=== PATIENT | female | born 1985 | race African-American/Black ===

== ENCOUNTER 2017-12-21 10:15 | Emergency (ER) | payer OTHER ==
[~2017-12-21] VITALS: Ht 154.9 cm; Wt 65.8 kg
--- NOTE | ~2017-12-21 | EKG ---
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
[~2017-12-21 10:15] MED LIST: AZITHROMYCIN 2250 MG PO; DIFLUCAN150 MG PO; FLAGYL500 MG PO; HYDROCHLOROTH12.5 M2 PO; IBUPROFEN 400400 M1; IRON325; LABETALOL HCL100 MG PO; NOHOMEMEDICATIONS; NORCO 5-325 TA1 EACH PO; PERCOCET 10-321 EACH PO; PERCOCET 5-3251 EACH PO; PHENERGAN 25 MG25 M1; PREDNISONE 10 M10 M1 PO; PRENATAL; PROAIR HFA8.5 GM INH; PYRIDIUM200 MG PO; TUCKS MEDICATE1 EAC1; VERAPAMIL ER180 M1 PO; VISTARIL 25 MG25 M1 PO
[2017-12-21 11:05] LABS: URINE BILIRUBIN NEGATIVE (Negative); URINE BLOOD NEGATIVE (Negative); URINE CLARITY CLEAR; URINE COLOR YELLOW; URINE GLUCOSE-RANDOM* NEGATIVE (Negative); URINE KETONES NEGATIVE (Negative); URINE LEUKOCYTES-REFLEX NEGATIVE (Negative); URINE NITRITE-REFLEX NEGATIVE (Negative); URINE PROTEIN (DIPSTICK) NEGATIVE (Negative); URINE SPECIFIC GRAVITY 1.025 (1.005-1.035); URINE UROBILINOGEN 0.2 E.U./dl (0.2-1.0)
[2017-12-21 11:36] LABS: ABSOLUTE NEUTROPHILS 4.1 thou/uL (1.4-8.2); BASOPHILS 0.8 % (0.0-2.0); EOSINOPHILS 0.9 % (0.0-3.0); HEMATOCRIT 38.2 % (37.0-47.0); LYMPHOCYTES 36.5 % (24.0-44.0); MCH 30.2 pg (26.0-34.0); MCV 88.9 fL (80.0-100.0); MONOCYTES 8.8 % (1.0-8.0); PLATELET COUNT 317 thou/uL (150-400); RBC 4.29 mil/uL (4.20-5.00); RDW 12.7 % (10.5-14.5); WBC 8.6 thou/uL (4.0-11.0)
[2017-12-21 11:47] LABS: CALCIUM 9.4 mg/dL (8.5-10.1); CREATININE 0.8 mg/dL (0.6-1.0); POTASSIUM 3.9 mmol/L (3.5-5.1)
[2017-12-21 11:51] LABS: ALBUMIN 3.6 g/dL (3.4-5.0); TOTAL BILIRUBIN 0.3 mg/dL (<0.1-1.0); TOTAL PROTEIN 7.2 g/dL (6.4-8.2)
[2017-12-21] MEDS ORDERED: HYDROCODONE-AP1 EAC6 PO (13:17)
[2018-06-23] MEDS ORDERED: ALDOMET250 MG PO (15:01)
[2018-06-23] MEDS ORDERED: METHYLDOPA500 MG PO (16:32)
== END 2017-12-21 13:27 | disposition home or self-care (01) ==
LOC: ER 10:15
PROVIDERS: Emergency Medicine; Physician Assistant
DX: N83.202 Unspecified ovarian cyst, left side (principal); I10 Essential (primary) hypertension; Z91.14 Patient's other noncompliance with medication regimen; Z90.710 Acquired absence of both cervix and uterus

== ENCOUNTER 2018-03-18 14:31 | Emergency (ER) | payer OTHER ==
[~2018-03-18] VITALS: Ht 160 cm; Wt 65.8 kg
[~2018-03-18 14:31] MED LIST changes: +HYDROCODONE-AP1 EAC6 PO
[2018-03-18] MEDS ORDERED: LISINOPRIL5 MG PO (14:45)
[2018-03-18 14:58] LABS: URINE BILIRUBIN NEGATIVE (Negative); URINE BLOOD TRACE (Negative); URINE CLARITY CLEAR; URINE COLOR YELLOW; URINE GLUCOSE-RANDOM* NEGATIVE (Negative); URINE KETONES NEGATIVE (Negative); URINE LEUKOCYTES NEGATIVE (Negative); URINE NITRITE NEGATIVE (Negative); URINE PROTEIN (DIPSTICK) NEGATIVE (Negative); URINE UROBILINOGEN 0.2 E.U./dl (0.2-1.0)
[2018-03-18] MEDS ORDERED: FLAGYL500 MG PO (16:28)
[2018-03-18] MEDS ORDERED: CITRATE OF MAG296 ML PO (16:42)
[2018-03-18 16:54] VITALS: BP 147/94
== END 2018-03-18 16:57 | disposition home or self-care (01) ==
LOC: ER 14:31
PROVIDERS: Emergency Medicine
DX: K59.00 Constipation, unspecified (principal); N76.0 Acute vaginitis; M54.5 Low back pain; Z90.710 Acquired absence of both cervix and uterus

== ENCOUNTER 2020-05-14 09:57 | Emergency (ER) | payer OTHER ==
[~2020-05-14] VITALS: Ht 165.1 cm; Wt 61.2 kg
[~2020-05-14 09:57] MED LIST changes: +ALDOMET250 MG PO; +CITRATE OF MAG296 ML PO; +LISINOPRIL5 MG PO; +METHYLDOPA500 MG PO
[2020-05-14 11:14] LABS: URINE BILIRUBIN NEGATIVE (Negative); URINE BLOOD TRACE (Negative); URINE CLARITY CLEAR; URINE COLOR YELLOW; URINE GLUCOSE-RANDOM* NEGATIVE (Negative); URINE KETONES NEGATIVE (Negative); URINE LEUKOCYTES-REFLEX NEGATIVE (Negative); URINE NITRITE-REFLEX NEGATIVE (Negative); URINE PROTEIN (DIPSTICK) NEGATIVE (Negative); URINE UROBILINOGEN 0.2 E.U./dl (0.2-1.0)
[2020-05-14 13:23] LABS: ABSOLUTE NEUTROPHILS 3.1 thou/uL (1.4-8.2); BASOPHILS 0.5 % (0.0-2.0); HEMATOCRIT 39.3 % (37.0-47.0); HEMOGLOBIN 13.2 gm/dL (12.0-15.0); LYMPHOCYTES 37.5 % (24.0-44.0); MCH 29.5 pg (26.0-34.0); MCHC 33.6 g/dL (28.0-37.0); MCV 87.6 fL (80.0-100.0); MONOCYTES 6.6 % (1.0-8.0); PLATELET COUNT 334 thou/uL (150-400); POLYS 54.4 % (36.0-66.0); RBC 4.48 mil/uL (4.20-5.00); RDW 12.9 % (10.5-14.5); WBC 5.7 thou/uL (4.0-11.0)
[2020-05-14 13:33] LABS: CALCIUM 9.1 mg/dL (8.5-10.1); CREATININE 0.8 mg/dL (0.6-1.0); POTASSIUM 3.8 mmol/L (3.5-5.1)
[2020-05-14 13:39] LABS: ALBUMIN 3.6 g/dL (3.4-5.0); TOTAL BILIRUBIN 0.4 mg/dL (0.2-1.0); TOTAL PROTEIN 7.6 g/dL (6.4-8.2)
[2020-05-14] MEDS ORDERED: NAPROSYN500 MG PO (15:26)
[2020-05-14 15:40] VITALS: BP 148/92
== END 2020-05-14 15:40 | disposition home or self-care (01) ==
LOC: ER 09:57
PROVIDERS: Emergency Medicine
DX: R10.31 Right lower quadrant pain (principal); R10.32 Left lower quadrant pain; G43.909 Migraine, unspecified, not intractable, without status migrainosus; I10 Essential (primary) hypertension; Z90.711 Acquired absence of uterus with remaining cervical stump

== ENCOUNTER 2021-02-06 13:34 | Emergency (ER) | payer OTHER ==
[~2021-02-06] VITALS: Ht 157.5 cm; Wt 74.8 kg
[~2021-02-06 13:34] MED LIST changes: +NAPROSYN500 MG PO
[2021-02-06 14:23] LABS: ABSOLUTE NEUTROPHILS 2.5 thou/uL (1.4-8.2); BASOPHILS 0.7 % (0.0-2.0); EOSINOPHILS 1.8 % (0.0-3.0); HEMATOCRIT 38.1 % (37.0-47.0); LYMPHOCYTES 38.3 % (24.0-44.0); MCH 29.8 pg (26.0-34.0); MCHC 34.1 g/dL (28.0-37.0); MCV 87.4 fL (80.0-100.0); MONOCYTES 8.4 % (1.0-8.0); PLATELET COUNT 377 thou/uL (150-400); POLYS 50.8 % (36.0-66.0); RBC 4.36 mil/uL (4.20-5.00); RDW 12.7 % (10.5-14.5); WBC 4.9 thou/uL (4.0-11.0)
[2021-02-06 14:38] LABS: ANION GAP 10 mmol/L (7-16); BUN 9 mg/dL (7-18); CHLORIDE 103 mmol/L (98-107); CO2 28 mmol/L (21-32); CREATININE 0.9 mg/dL (0.6-1.0); GLUCOSE 93 mg/dL (74-106); POTASSIUM 3.6 mmol/L (3.5-5.1); SODIUM 141 mmol/L (136-145)
[2021-02-06 14:46] LABS: TROPONIN-I <0.06 ng/mL (<0.06)
[2021-02-06] MEDS ORDERED: ONDANSETRON HCL4 M2 PO (15:29)
[2021-02-06] MEDS ORDERED: LISINOPRIL5 MG PO (15:29)
[2021-02-06 15:33] VITALS: BP 155/101
--- NOTE | 2021-02-07 07:16 | EKG ---
[address] [place] [address] ELECTROCARDIOGRAM 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 : 1985 Requested By: Terence Brody Order Number: [id number] MD: Mike Chris Measurements Intervals [place] Rate: 74 P: 50 AR: 145 QRS: 22 QRSD: 86 T: 26 QT: 448 QTc: 497 Interpretive Statements Sinus rhythm Left atrial enlargement Probable left ventricular hypertrophy Prolonged QT interval Compared to ECG 06/23/2018 14:25:57 Atrial abnormality now present Prolonged QT interval now present Electronically Signed On 02-07-2021 7:16:00 CDT by Mike Chris [email or web address] <ELECTRONICALLY SIGNED> By: Mike Chris MD, [facility] 02/07/21 0716 D: [id number] Mike Chris MD, FACC /EPI
== END 2021-02-06 15:53 | disposition home or self-care (01) ==
LOC: ER 13:34
PROVIDERS: Nurse Practitioner
DX: I10 Essential (primary) hypertension (principal); R51.9 Headache, unspecified